=== PATIENT | female | born 2000 | race African-American/Black ===

== ENCOUNTER 2022-12-10 16:12 | Emergency (ER) | payer OTHER, SELFPAY ==
[2022-12-10 16:14] VITALS: BP 131/69; PULSE 89; RESP 16; TEMP 36.6; O2SAT 97; BMI 37.3
[2022-12-10 16:31] VITALS: BP 123/83
--- NOTE | 2022-12-10 16:40 | ED.SOB1 ---
HPI - SOB/Dyspnea General Chief Complaint: Shortness of Breath/Dyspnea Stated Complaint: Shortness of Breath Time Seen by Provider: 12/10/22 16:15 Source: patient Mode of arrival: ambulance History of Present Illness HPI Narrative: 22-year-old female presented to the emergency department for loss of voice and right ear pain and wheezing. She has a history of asthma. She was seen at another hospital last week and she states her x-ray of her chest was negative and they put her on prednisone which she has now finished. Over the past three days some of the difficulty breathing has returned and now her right ear hurts without trauma or drainage. No sore throat or left ear pain. Her voice has been hoarse for the past two or three days as well. Related Data Home Medications Medication Instructions Recorded Confirmed albuterol sulfate 2.5 mg/3 mL 2.5 mg inhalation Q4H PRN 12/10/22 12/10/22 (0.083 %) solution for nebulization shortness of breath or wheezing cariprazine 3 mg capsule (Vraylar) 3 mg PO DAILY 12/10/22 12/10/22 fluticasone 100 mcg-salmeterol 50 1 inh inhalation DAILY 12/10/22 12/10/22 mcg/dose blistr powdr for inhalation (Advair Diskus) loratadine 10 mg tablet (Claritin) 10 mg PO DAILY 12/10/22 12/10/22 montelukast 10 mg tablet 10 mg PO QPM 12/10/22 12/10/22 Previous Rx's Medication Instructions Recorded [id number]-ycstmrofp-[id number] 3.5 4 drp otic (ear) Q8H 7 days #10 mL 12/10/22 mg/mL-10,000 unit/mL-1 % ear solution prednisone 10 mg tablet See Rx Instructions .Route 12/10/22 .COMPLEX #30 tabs Allergies Allergy/AdvReac Type Severity Reaction Status Date / Time No Known Drug Allergies Allergy Verified 12/10/22 16:38 Review of Systems ROS Narrative A ten point review of systems is negative except as noted above. PFSH PFSH Social History Smoking status: Never smoker Exam Narrative Exam Narrative: Nurses note and vital signs reviewed and patient is not hypoxic. General: The patient appears well and in no apparent distress. Patient is resting comfortably on cart. her voice is hoarse Skin: Warm, dry, no pallor noted. There is no rash noted. Head: Normocephalic, atraumatic Eye: Normal conjunctiva, no drainage Ears, Nose, Mouth, and Throat: oral mucosa is moist. Nares patent. both tympanic membranes are normal. Left external canal is normal but the right is swollen and erythematous. No foreign body. Cardiovascular: Regular Rate and Rhythm Respiratory: bilateral rhonchi present Back: non-tender GI: soft and nontender Musculoskeletal: The patient has no evidence of calf tenderness, no pitting edema, symmetrical pulses noted bilaterally Neurological: A&O, normal speech Psychiatric: Cooperative Constitutional Vital Signs, click to edit/add: Last Vital Signs Temp 97.8 F 12/10/22 16:14 Pulse 82 12/10/22 16:58 Resp 16 12/10/22 16:14 BP 131/69 12/10/22 16:14 Pulse Ox 96 12/10/22 16:58 O2 Del Method Room Air 12/10/22 16:14 Course Vital Signs Vital signs: Vital Signs Temperature 97.8 F 12/10/22 16:14 Pulse Rate 89 12/10/22 16:14 Respiratory Rate 16 12/10/22 16:14 Blood Pressure 131/69 12/10/22 16:14 Pulse Oximetry 97 12/10/22 16:14 Oxygen Delivery Method Room Air 12/10/22 16:14 Temperature 97.8 F 12/10/22 16:14 Pulse Rate 82 12/10/22 16:58 Respiratory Rate 16 12/10/22 16:14 Blood Pressure 131/69 12/10/22 16:14 Pulse Oximetry 96 12/10/22 16:58 Oxygen Delivery Method Room Air 12/10/22 16:14 MDM - SOB/Dyspnea MDM Narrative Medical decision making narrative: She was given IM Solu-Medrol and aerosol treatment and feels improved. She had a recent negative chest x-ray and I do not feel another as needed. She'll be placed on tapering dose of prednisone but also Cortisporin. Oral antibiotic not indicated. Treatment diagnosis and follow-up were discussed with the patient. Differential Diagnosis Differential diagnosis: Likely asthma with exacerbation and other (otitis media, otitis externa) Discharge Plan Discharge Chief Complaint: Shortness of Breath/Dyspnea Clinical Impression: Asthma with acute exacerbation, Otitis externa Patient Disposition: Home, Self-Care Time of Disposition Decision: 17:30 Condition: Good Mode of Transportation: Private Vehicle Prescriptions / Home Meds: New prednisone 10 mg tablet See Rx Instructions .ROUTE .COMPLEX Qty: 30 0RF Rx Instructions: 4 by mouth daily for three days then 3 by mouth daily for three days then 2 by mouth daily for three days then 1 by mouth daily for three days cvnwtcna-qmqeiscnz-SE 3.5-10,000-1 mg/mL-unit/mL-% solution 4 drp otic (ear) Q8H 7 Days Qty: 10 0RF No Action fluticasone propion-salmeterol [Advair Diskus] 100-50 mcg/dose blister with device 1 inh inhalation DAILY Vraylar 3 mg capsule 3 mg PO DAILY montelukast 10 mg tablet 10 mg PO QPM loratadine [Claritin] 10 mg tablet 10 mg PO DAILY albuterol sulfate 2.5 mg /3 mL (0.083 %) solution for nebulization 2.5 mg inhalation Q4H PRN (Reason: shortness of breath or wheezing) Instructions: Asthma (ED), Swimmer's Ear (ED) Stand Alone Forms: Portal Instructions Referrals: Physician,Non-Staff, MD [Primary Care Provider] - 1 week
[2022-12-10 16:54] VITALS: PULSE 89
[2022-12-10] MEDS: ALBUTEROL SULFATE 2.5 MG/3 ML VIAL NEB IH (16:54)
[2022-12-10 16:58] VITALS: PULSE 82; O2SAT 96
[2022-12-10] MEDS: METHYLPREDNISOLONE SOD SUCC PF 125 MG/2 ML VIAL IM (17:11)
[2022-12-10 17:17] VITALS: BP 117/98; O2SAT 98
[2022-12-10 17:31] VITALS: BP 130/72; O2SAT 100
== END 2022-12-10 17:46 | disposition home or self-care (01) ==
PROVIDERS: Emergency Provider Emergency Medicine
DX: J45.901 Unspecified asthma with (acute) exacerbation (principal); H60.91 Unspecified otitis externa, right ear; Z79.899 Other long term (current) drug therapy
CPT/HCPCS: 94640; 96372; 99284; J2930